=== PATIENT | female | born 1995 | race Caucasian/White ===

== ENCOUNTER 2023-12-08 11:05 | Observation (INO) ==
[2023-12-08 13:32] LABS: ABS Basophils 0.1 10^3/uL (0.0-0.1); ABS Eosinophils 0.1 10^3/uL (0.0-0.5); ABS Lymphocytes 1.8 10^3/uL (1.0-4.8); ABS Monocytes 1.5 10^3/uL (0.0-0.9); ABS Neutrophils 12.6 10^3/uL (1.5-7.6); ABS Nucleated RBC 0.01 10^3/ul; Eosinophil % 0.6 %; Hematocrit 44.7 % (35-45); Hemoglobin 15.1 g/dL (11.5-14.3); Mean Corpuscular Hemoglobin 31.7 pg (27-33); Mean Corpuscular Hgb Conc 33.8 g/dL (31-36); Mean Corpuscular Volume 93.8 fL (80-97); Platelet Count 227 10^3/uL (150-450); Red Blood Count 4.77 10^6/uL (3.63-4.92)
[2023-12-08] MEDS: Ondansetron 4 mg VIAL 2 MG/ML 2 ml VIAL IV ONE (14:12)
[2023-12-08] MEDS: Famotidine IV 10 MG/ML 2 ml VIAL (20 mg) IV SLOW PU ONE (14:12)
[2023-12-08 14:33] LABS: ALT 19 U/L (7-52); AST 16 U/L (13-39); Albumin 4.5 g/dL (3.2-5.2); Albumin/Globulin Ratio 1.8 (1-3); Alkaline Phosphatase 47 U/L (35-149); Anion Gap 6 mmol/L (2-16); Blood Urea Nitrogen 8 mg/dL (6-24); C Reactive Protein 22.26 mg/L (<8.01); CO2 Carbon Dioxide 29 mmol/L (22-32); Calcium 9.6 mg/dL (8.6-10.3); Chloride 102 mmol/L (101-111); Creatinine, Serum 0.75 mg/dL (0.51-0.95); Globulin 2.5 g/dL (2-4); Glucose 94 mg/dL (70-100); Lipase 11 U/L (11.0-82.0); Potassium 4.1 mmol/L (3.5-5.0); Sodium 137 mmol/L (135-145); Total Bilirubin 0.7 mg/dL (0.2-1.0); eGFR CKD-EPI 111.8 (>60)
[2023-12-08 14:38] LABS: HCG Pregnancy < 0.60 mIU/mL
[2023-12-08] MEDS: Iohexol 300 (CONTRAST) 10 ML SDV IV ONE (18:17)
[2023-12-08] MEDS: cefTRIAXone 1 gm/50 mL D5W 1 GM/50 ML BAG IV ONE (20:51)
[2023-12-08] MEDS: metroNIDAZOLE IV 500 MG/100ML 500 MG/100 ML BAG IVPB ONE (20:57)
[2023-12-08] MEDS ORDERED: HYDROmorphone 1 MG/1 ML SYRINGE IV SLOW PU PRN (21:00)
[2023-12-08] MEDS ORDERED: Calcium Carb (TUMS) 500 mg CHEW TAB PO PRN (21:08)
[2023-12-08] MEDS: Lactated Ringers 1000 ml BAG 1,000 ML IV SCH (21:19)
[2023-12-09] MEDS: metroNIDAZOLE IV 500 MG/100ML 500 MG/100 ML BAG IVPB SCH (05:55)
[2023-12-09 05:59] LABS: ABS Basophils 0.1 10^3/uL (0.0-0.1); ABS Eosinophils 0.1 10^3/uL (0.0-0.5); ABS Lymphocytes 1.6 10^3/uL (1.0-4.8); ABS Monocytes 1.5 10^3/uL (0.0-0.9); ABS Neutrophils 12.8 10^3/uL (1.5-7.6); Eosinophil % 0.7 %; Hematocrit 41.6 % (35-45); Hemoglobin 13.9 g/dL (11.5-14.3); Lymphocyte % 10.1 %; Mean Corpuscular Hemoglobin 31.5 pg (27-33); Mean Corpuscular Hgb Conc 33.5 g/dL (31-36); Mean Corpuscular Volume 93.8 fL (80-97); Platelet Count 196 10^3/uL (150-450); Red Blood Count 4.43 10^6/uL (3.63-4.92); Red Cell Distribution Width 12.9 % (12-17); White Blood Count 16.2 10^3/uL (3.8-11.8)
[2023-12-09 06:33] LABS: C Reactive Protein 51.84 mg/L (<8.01); Calcium 8.4 mg/dL (8.6-10.3); Creatinine, Serum 0.65 mg/dL (0.51-0.95); Potassium 3.5 mmol/L (3.5-5.0); eGFR CKD-EPI 123.7 (>60)
[2023-12-09] MEDS ORDERED: fentaNYL 250 mcg/5 ml 50 MCG/ML 5 ml VIAL (250 MCG) ONE (12:07)
[2023-12-09] MEDS ORDERED: Rocuronium 50 mg VIAL 10 mg/ml 5 ml VIAL (50 mg) ONE (12:07)
[2023-12-09] MEDS ORDERED: Lidocaine 2% PF 5 ML VIAL ONE (12:07)
[2023-12-09] MEDS ORDERED: Propofol 10 MG/ML 20 ML BTL ONE (12:07)
[2023-12-09] MEDS ORDERED: Midazolam 2 mg/2 ml VIAL 1 mg/ml 2 ml VIAL (2 mg) ONE (12:07)
[2023-12-09] MEDS ORDERED: metroNIDAZOLE IV 500 MG/100ML 500 MG/100 ML BAG ONE (12:15)
[2023-12-09] MEDS ORDERED: Bupivacaine 0.5% SDV PF 30ML VIAL ONE (12:18)
[2023-12-09] MEDS ORDERED: Lidocaine 1% w EPI 1:100,000 MDV 20 ML VIAL ONE (12:18)
[2023-12-09] MEDS ORDERED: Dexamethasone IV 4 MG/ML VIAL 1 ml VIAL ONE (13:12)
[2023-12-09] MEDS ORDERED: Ondansetron 4 mg VIAL 2 MG/ML 2 ml VIAL ONE ×2 (13:12→14:42)
[2023-12-09] MEDS ORDERED: Acetaminophen IV 1 GM/100ML 1,000 MG/100 ML BAG IV ONE (13:32)
[2023-12-09] MEDS: oxyCODONE/Acetamin 5/325 mg TAB PO PRN (14:46)
[2023-12-09] MEDS ORDERED: oxyCODONE/Acetamin 5/325 mg TAB ONE (14:46)
[2023-12-09] MEDS: Ondansetron 4 mg VIAL 2 MG/ML 2 ml VIAL IV PRN (14:47)
[2023-12-09 16:13] VITALS: BP 103/76
[2023-12-09] MEDS ORDERED: cefTRIAXone 1 gm/50 mL D5W 1 GM/50 ML BAG IV SCH (21:00)
== END 2023-12-09 16:40 | disposition home or self-care (01) ==
LOC: EDHOLD 11:05 → ED 11:05 → EDHOLD 12-09 08:45 → AA 12-09 14:08
PROVIDERS: ADMIT Surgery; ATTEND Surgery